=== PATIENT | female | born 1960 | race Caucasian/White ===

== ENCOUNTER 2020-09-12 14:32 | Emergency (ER) | payer BC, MEDICARE ==
[~2020-09-12 14:32] MED LIST: ZOFRAN ODT 4 MG4 MG PO
[2020-09-12 15:13] LABS: HEMOGLOBIN 14.3 gm/dl (12.3-15.3); RED BLOOD COUNT 4.55 M/UL (4.00-5.10); WHITE BLOOD COUNT 8.1 K/UL (4.5-11.0)
[2020-09-12 16:12] LABS: BUN/CREATININE RATIO 28 (0-10)
[2020-09-12] MEDS ORDERED: AZITHROMYCIN500 MG PO (18:00)
== END 2020-09-12 18:45 | disposition home or self-care (01) ==
LOC: ER1 14:32
PROVIDERS: Emergency Medicine
DX: S02.832A Fracture of medial orbital wall, left side, initial encounter for closed fracture (principal); S02.19XA Other fracture of base of skull, initial encounter for closed fracture; S02.842A Fracture of lateral orbital wall, left side, initial encounter for closed fracture; S80.212A Abrasion, left knee, initial encounter; E11.9 Type 2 diabetes mellitus without complications; I10 Essential (primary) hypertension; J44.9 Chronic obstructive pulmonary disease, unspecified; Z90.49 Acquired absence of other specified parts of digestive tract; Z90.89 Acquired absence of other organs; F17.290 Nicotine dependence, other tobacco product, uncomplicated; W22.8XXA Striking against or struck by other objects, initial encounter
CPT/HCPCS: 70450; 70486; 71045; 72125; 80053; 81001; 82550; 82553; 83874; 84484; 85025; 87086; 93005; 99284